=== PATIENT | female | born 1980 | race Caucasian/White ===

== ENCOUNTER 2017-05-25 06:06 | Day surgery (SDC) | payer BC ==
[~2017-05-25] VITALS: Ht 157.5 cm; Wt 86.2 kg
--- NOTE | 2017-05-25 07:38 | Operative Note ---
Procedure/Operative Record Date of Procedure: 05/25/17 Referring physician: Dr. Anand Pre-op diagnosis: Dysfunctional uterine bleeding Post-op diagnosis: 1. Dysfunctional uterine bleeding. 2. Endometrial polyps. Procedure performed: 1. Diagnostic hysteroscopy. 2. Endometrial polypectomy. 3. Fractional dilatation and curettage. Surgeon: Harinder Roger Anesthesia: Gen., [facility] Indications: Dysfunctional uterine bleeding Description of procedure: After the patient was prepped and draped in usual fashion and general anesthesia was administered, examination under anesthesia revealed a symmetrically enlarged uterus, with no palpable adnexal masses. A weighted speculum was placed within the posterior fourchette of the vagina, and the anterior lip of the cervix was grasped with single-tooth tenaculum. A small curette was introduced into the endocervix, with retrieval of a small amount of tissue. The cervix was then easily dilated to number 20 Hegar dilators, and sounded it to 10 cm. Using 1.5 percent glycine as a distending medium, and operating hysteroscope was introduced into the endometrial cavity. There were multiple endometrial polyps, and the tissue was thickened. A large polyp was removed, and then a sharp was introduced into the endometrial cavity, with retrieval of a large amount of lush endometrium. Reintroduction of the hysteroscope revealed no further pathology. The instruments removed. The sponge and needle counts correct. This blood loss was 3 mL. The patient tolerated the procedure well, was taken to PACU in excellent condition. She will be discharged today, if her vital signs are stable. EBL (ml): 30 Complications: None Specimens: 1. Endometrial polyp. 2. Uterine curettings. at 3746
--- NOTE | 2017-05-25 07:42 | Anesthesia Record ---
Anesthesia Record Part I Total IV fluids: 200 EBL (ml): 10 Urine Output: 75 B/P: 130/68 % SaO2: 92 Pulse: 74 Resps: 20 Temp: 98.2 Patient is: Nasal O2 Stable to PACU at: 0739 at 0741
--- NOTE | 2017-05-25 07:42 | Anesthesia Record ---
Anesthesia Record Part II Discharge time: 818 Destination: Same day surgery PACU nurse assessment review? Yes Patient is: Nasal O2 Anesthesia complications? No at 0742
[2017-05-25 08:59] LABS: HEMOGLOBIN 11.3 g/dL (12.2-16.2)
[2017-05-25 12:12] VITALS: BP 120/73
== END 2017-05-25 09:20 | disposition home or self-care (01) ==
LOC: SDC 06:06
PROVIDERS: Obstetrics & Gynecology
PROC: 0UDB8ZX Extraction of Endometrium, Via Natural or Artificial Opening Endoscopic, Diagnostic (ICD-10-PCS; 2017-05-25)
PROC: 0UB98ZX Excision of Uterus, Via Natural or Artificial Opening Endoscopic, Diagnostic (ICD-10-PCS; principal; 2017-05-25 07:30)
DX: N93.8 Other specified abnormal uterine and vaginal bleeding (principal); N84.0 Polyp of corpus uteri
CPT/HCPCS: J2405

== ENCOUNTER → 2017-06-09 | Outpatient (CLI) | payer BC ==
--- NOTE | 2017-06-14 11:25 | RADIOLOGY REPORT PS360 ---
. DIG MAMM-SCREEN JUSTIN W/CAD CAD Screening ORDERING PHYSICIAN : Harinedr Roger MD PATIENT AGE: 36 years GENDER: Female COMPARISON: Previous mammograms: No previous studies. Baseline mammogram. INDICATION: Routine screening 36-year-old no hormones no new complaints noncontributory family history TECHNIQUE: Standard CC and MLO images were obtained. R2 CAD reviewed. FINDINGS: Low-density breast bilaterally for this age patient. No dominant mass nor suspicious calcifications in either breast. No areas of concern. Routine follow-up recommended There are 3 small benign appearing calcifications at the superior left breast.. One year follow-up would be adequate IMPRESSION: Baseline mammogram with no significant findings. No malignancy evident radiographically. I would note 3 small benign-appearing calcification superior right breast noted. Recommend routine follow-up with bilateral mammogram in one year BI-RADS CATEGORY:2. RECOMMENDED FOLLOWUP: 12M 12 MONTH FOLLOW-UP to further to confirm stable baseline appearance (A letter has been sent to the patient regarding results of the study.)
== END ==
LOC: RAD 08:45
DX: Z12.31 Encounter for screening mammogram for malignant neoplasm of breast (principal)
CPT/HCPCS: G0202

== ENCOUNTER 2017-06-29 06:03 | Inpatient (IN) | payer BC ==
[2017-06-29] VITALS (15 sets, daily range): BP systolic 128–162; BP diastolic 59–96
[~2017-06-29] VITALS: Ht 157.5 cm; Wt 127.0 kg
--- NOTE | 2017-06-29 09:28 | Operative Note ---
Procedure/Operative Record Date of Procedure: 06/29/17 Referring physician: Dr. Anand Pre-op diagnosis: Complex atypical endometrial hyperplasia Post-op diagnosis: Complex atypical endometrial hyperplasia Procedure performed: Exploratory laparotomy, peritoneal washings, total abdominal hysterectomy, bilateral salpingo-oophorectomy. Surgeon: Harinder Roger Customer Relations Specialist(s): JOE Reddy Anesthesia: Gen., [employer] Indications: Complex atypical endometrial hyperplasia Description of procedure: After the patient was prepped and draped in usual fashion and general anesthesia was administered, a low Pfannenstiel incision was made across the midline, and the fat and fascia were in usual fashion, bleeders being clamped and coagulated along the way. Peritoneum was entered with Metzenbaum scissors, and extended above and below. There was no ascites. Peritoneal washings were carried out and submitted for cytology. A self-retaining Aubrie retractor with bladder blade was placed. The uterus was symmetrically enlarged. Each tube was followed out to its fimbriated end, which appeared free. Each ovary was small, but cystic. Either side was Indra clamped, cut, and Indra sutured with #1 Vicryl. The bladder peritoneum was then sharply and bluntly dissected free. The infundibulopelvic ligament on either side was Indra clamped, cut, and Indra suture with #1 Vicryl, thus including both adnexa within the uterine specimen. The uterine vessels, the cardinal and uterosacral ligament on either side were Indra clamped, cut, and Indra suture with #1 Vicryl. The vagina was then entered anteriorly with a knife, and the uterine specimen was removed with Paulie scissors. Josef clamps were used to tent up the vaginal cuff, which was closed with a running locked suture of #1 Vicryl. The pelvic peritoneum was difficult to so because of its thinness, and it was not approximated. The pedicles were inspected, and found to be dry. Gelfoam was placed against the back of the vaginal cuff. The appendix was difficult to assess because was retrocecal. It remains in situ. The peritoneum was grasped with 3 Patty clamps, and closed with a running semi-locked suture 0 Vicryl. The muscle was approximated with a running unlocked suture of 0 Vicryl. The fascia was closed with a running locked suture of #1 Vicryl. Because of oozing, Surgicel was placed beneath the fascia and a top the muscle. The subcutaneous fat and Preet' s fascia were closed with a running unlocked suture of 2-0 Vicryl. The skin was closed with a subcuticular suture of 3-0 Vicryl, and appropriately dressed. The scope in the Conley catheter. The sponge and needle counts correct. Estimated blood loss was 300 mL. The patient tolerated the procedure well, was taken to PACU in excellent condition. She will be admitted postoperatively. EBL (ml): 300 Complications: None Specimens: 1. Peritoneal washings. 2. Uterus. 3. Both adnexa at 8022
--- NOTE | 2017-06-29 09:44 | Anesthesia Record ---
Anesthesia Record Part I Total IV fluids: 1200 EBL (ml): 300 Urine Output: 350 Units of blood given: 0 B/P: 150/77 % SaO2: 95 Pulse: 62 Resps: 10 Temp: 97.3 Patient is: Drowsy, Mask O2, Stable Stable to PACU at: 0935 at 0944
--- NOTE | 2017-06-29 09:45 | Anesthesia Record ---
Anesthesia Record Part II Discharge time: 1005 Destination: OB PACU nurse assessment review? Yes Patient is: Drowsy, Mask O2, Stable Anesthesia complications? No at 0981
[2017-06-29 11:00] LABS: HEMOGLOBIN 11.7 g/dL (12.2-16.2)
[2017-06-29] MEDS ORDERED: NAPROXEN500 M1 PO (11:38)
[2017-06-29] MEDS ORDERED: SYNTHROID 0.0.125 MG PO (11:39)
[2017-06-29] MEDS ORDERED: ZYRTEC10 M2 PO (11:40)
--- NOTE | 2017-06-29 12:33 | ACUTE CARE PROGRESS NOTE (QUA) ---
Progress Notes Subjective Date 06/29/17 Time 1232 Assessment/Plan This inpt stay is expected to cross 2 MNs from start of care Yes (major surgery) at 1235
[2017-06-29 13:16] LABS: URINE BILIRUBIN - DIPSTICK NEGATIVE (NEG); URINE BLOOD TRACE-INTACT (NEG)
[2017-06-30 04:00] VITALS: BP 118/64
--- NOTE | 2017-06-30 06:13 | ACUTE CARE PROGRESS NOTE (QUA) ---
Progress Notes Subjective Date 06/30/17 Time 0610 Note This is postop day number 1. The issue of mild hypertension noted yesterday has been resolved because the patient has large arms and a small cuff was being used. With a large cuff her blood pressure is normal (117/62). She has had a low -grade fever (less than 100 by mouth), but feels well. Her abdomen is soft. Her wound is clean. Bowel sounds are present. Her Conley has been removed and she has voided. Her lungs are clear. Calves are nontender. Impression: Stable. Plan is to ambulate today and increased diet. Assessment/Plan This inpt stay is expected to cross 2 MNs from start of care Yes (major surgery) at 0613
[2017-06-30 08:40] VITALS: BP 128/71
[2017-06-30 12:30] VITALS: BP 120/65
--- NOTE | 2017-06-30 12:49 | ACUTE CARE PROGRESS NOTE (QUA) ---
Progress Notes Subjective Date 06/30/17 Time 1248 Note The patient is afebrile. Vital signs stable. Wound clean. Abdomen soft. Bowel sounds present. She has been up and around. Urine output is good. Impression: Stable. Assessment/Plan This inpt stay is expected to cross 2 MNs from start of care Yes (major surgery) at 1240
--- NOTE | 2017-06-30 15:44 | PHARMACY CLINIC NOTE ---
Patient Demographics Patient Demographics Admission date: 06/29/17 Date: 06/30/17 Time: 1543 Allergies Coded Allergies: Penicillins (rash 06/29/17) penicillin G (06/29/17) HEIGHT- FT: 5 IN: 2.00 K.008 VTE General Information Disclaimer The following section includes nursing documentation that has been pulled in for pharmacy review. Patient's VTE score: 1 Patient's VTE Risk: VERY LOW RISK VTE prophylaxis NQF 0371 VTE prophylaxis ordered? Yes Type of prophylaxis/treatment: ICD at 1940
[2017-06-30 16:30] VITALS: BP 132/63
[2017-06-30 20:00] VITALS: BP 118/67
[2017-07-01 01:00] VITALS: BP 131/108
[2017-07-01 08:10] VITALS: BP 138/80
--- NOTE | 2017-07-01 08:35 | ACUTE CARE PROGRESS NOTE (QUA) ---
Progress Notes Subjective Date 07/01/17 Time 0834 Note This is postop day number 2. The patient is afebrile. Vital signs stable. Wound clean. Abdomen soft. Passing flatus. She is ambulating well. Urine output is good. Impression: Stable. Assessment/Plan This inpt stay is expected to cross 2 MNs from start of care Yes (major surgery) at 0834
[2017-07-01 12:36] VITALS: BP 127/71
[2017-07-01 16:20] VITALS: BP 124/70
[2017-07-01 19:55] VITALS: BP 115/58
[2017-07-02 05:32] VITALS: BP 113/86
--- NOTE | 2017-07-02 08:21 | ACUTE CARE PROGRESS NOTE (QUA) ---
Progress Notes Subjective Date 07/02/17 Time 0820 Note This is postop day number 3. The patient is afebrile. Vital signs stable. Wound clean. Abdomen soft. Hemoglobin 11.7 g. She has had a bowel movement. She will be discharged today. Assessment/Plan This inpt stay is expected to cross 2 MNs from start of care Yes (major surgery) at 0820
--- NOTE | 2017-07-02 08:23 | DISCHARGE SUMMARY STANDARD ---
Discharge Summary Date of admission: 06/29/17 Date of discharge: 07/02/17 Patient condition: Stable Discharge diagnosis (es): 1. Atypical complex endometrial hyperplasia. 2. Mild anemia. Hospital course: This 36-year-old white female was admitted for definitive treatment of the above diagnoses. On the date of admission, she was taken to the operating room, where she underwent exploratory laparotomy with peritoneal washings, total abdominal hysterectomy, bilateral salpingo-oophorectomy, without complications. Her hemoglobin on admission was 13.0 g. Postoperatively, the patient has done well. She received Delestrogen 30 mg IM in PACU on 06/29/17. She is eating and ambulating, and has had a bowel movement. Her wound is clean. Her abdomen is soft. Her hemoglobin is 11.7 g, but she is clinically stable. She is not a smoker. She is discharged home on the third postoperative day on Percocet 5/325 (number 30), 1 by mouth every 6 hours when necessary pain. She is given appropriate instructions as to diet, exercise, and wound care, and she is to return the office in 2 weeks for follow-up. at 0849
[2017-07-02] MEDS ORDERED: HYDROCODONE-APA1 TA1 PO (08:25)
[2017-07-02 08:47] VITALS: BP 121/70
[2017-07-02 10:36] VITALS: BP 121/70
== END 2017-07-02 10:15 | disposition home or self-care (01) | DRG 743 ==
LOC: OB 06:03 → SDC 07:30 → EDSTATUS 07:30 → OB 10:57
PROVIDERS: Obstetrics & Gynecology
PROC: 0UT90ZZ Resection of Uterus, Open Approach (ICD-10-PCS; principal; 2017-06-30)
PROC: 0UT70ZZ Resection of Bilateral Fallopian Tubes, Open Approach (ICD-10-PCS; principal; 2017-06-30)
PROC: 0UTC0ZZ Resection of Cervix, Open Approach (ICD-10-PCS; principal; 2017-06-30)
PROC: 0UT20ZZ Resection of Bilateral Ovaries, Open Approach (ICD-10-PCS; principal; 2017-06-30)
DX: N85.02 Endometrial intraepithelial neoplasia [EIN] (principal)
CPT/HCPCS: J0131; J0330; J2405; J2710; Q2038